=== PATIENT | female | born 1970 | race Caucasian/White ===

== ENCOUNTER 2023-12-14 15:00 | Emergency (ER) | payer MEDICAID ==
[~2023-12-14] VITALS: Ht 162.6 cm; Wt 81.6 kg
[~2023-12-14 15:00] MED LIST: ATEN25TA7 PO; CARI350T PO; GABA400C PO; PAX20 PO
[2023-12-14 15:08] VITALS: BP 124/72; PULSE 100; RESP 18; TEMP 99.1; O2SAT 98
[2023-12-14] MEDS: KETOROLAC 30 MG/ML VIAL IM ONE (16:40)
[2023-12-14 18:04] VITALS: BP 122/74; PULSE 88; RESP 16; TEMP 98; O2SAT 99
== END 2023-12-14 18:04 | disposition home or self-care (01) ==
LOC: MED 15:00
DX: M79.672 Pain in left foot (principal); M25.572 Pain in left ankle and joints of left foot; I10 Essential (primary) hypertension; Z79.2 Long term (current) use of antibiotics; Z79.899 Other long term (current) drug therapy
CPT/HCPCS: 73590; 73610; 73630; 96372; 99284; J1885